=== PATIENT | female | born 1970 | race Two or more races ===

== ENCOUNTER 2021-05-14 06:00 | Day surgery (SDC) | payer OTHER ==
[~2021-05-14 06:00] MED LIST: SYNTHROID100 MCG PO; SYNTHROID88 MCG PO; TOPAMAX50 MG PO
[2021-05-14] MEDS ORDERED: DERMOPLAST PAIN78 GM TOP (09:52)
[2021-05-14] MEDS ORDERED: KETO10TA2 PO (09:52)
[2021-05-14] MEDS ORDERED: PERCOCET 5-3251 EACH PO (09:53)
[2021-05-14] MEDS ORDERED: NEURONTIN300 MG PO (09:53)
== END 2021-05-14 13:05 | disposition home or self-care (01) ==
LOC: CIR.AMB 06:00
PROVIDERS: ATTEND Surgery
DX: K64.1 Second degree hemorrhoids (principal); N81.6 Rectocele; E03.9 Hypothyroidism, unspecified; G43.909 Migraine, unspecified, not intractable, without status migrainosus